=== PATIENT | female | born 1965 | race Caucasian/White ===

== ENCOUNTER 2018-03-18 17:38 | Emergency (ER) | payer MEDICAID ==
[2018-03-18 18:43] LABS: EOSINOPHILS % (AUTO) 0.6 %; HGB - HEMOGLOBIN 9.9 g/dL (12.0-16.0); LYMPHOCYTES # (AUTO) 1.2 10^3/uL (1.5-3.5); LYMPHOCYTES % (AUTO) 24.9 %; MEAN CORPUSCULAR HEMOGLOBIN 24.2 pg (27.0-31.0); MEAN CORPUSCULAR HGB CONC 31.5 g/dL (32.0-36.0); MEAN CORPUSCULAR VOLUME 76.7 fL (81.0-99.0); MEAN PLATELET VOLUME 7.2 fL (7.9-10.8); MONOCYTES # (AUTO) 0.3 10^3/uL (0.0-1.0); MONOCYTES % (AUTO) 6.2 %; NEUTROPHILS # (AUTO) 3.3 10^3/uL (1.5-6.6); NEUTROPHILS % (AUTO) 67.3 %; PLT - PLATELET COUNT 400 10^3/uL (130-450); RED CELL DISTRIBUTION WIDTH 16.5 % (12.0-15.0); WHITE BLOOD COUNT 4.9 x10^3/uL (4.8-10.8)
[2018-03-18] MEDS: diphenhydrAMINE INJ 50 MG/ML VIAL IVP STA (18:46)
[2018-03-18] MEDS: METOCLOPRAMIDE 10 MG/2 ML VIAL IVP STA (18:46)
[2018-03-18] MEDS: SODIUM CHLORIDE 0.9% 1,000 ML IV ONE (18:49)
[2018-03-18 18:55] LABS: CALCIUM 8.7 mg/dL (8.5-10.3); CREATININE 0.8 mg/dL (0.4-1.0)
[2018-03-18 19:08] LABS: HCG,QUALITATIVE BLOOD NEGATIVE
--- NOTE | 2018-03-18 19:28 | ED Physician Documentation ---
History of Present Illness - Stated complaint Stated Complaint: HEADACHE - Chief complaint Chief Complaint: General - History obtained from History obtained from: Patient - History of Present Illness Timing: Yesterday Pain level max: >10 Pain level now: >10 Quality: Throbbing, sharp Improved by: Nothing Worsened by: Light and noise Associated symptoms: Nausea and vomiting - Additonal information Additional information: 52-year-old female with history of migraine, hypertension here complaining of her usual migraine headache since yesterday. Patient stated she had been workup and is being followed by a neurologist. She tried to take her Imitrex and Dilaudid pain medication but was not helping. at the bedside stated she had to bring her here because she has been vomiting and may be getting dehy drated. Patient denies any fever, trauma, travel or recent illness. Review of Systems Ten Systems: 10 systems reviewed and negative Constitutional: denies: Fever, Myalgias Eyes: reports: Photophobia. denies: Loss of vision, Decreased vision Nose: denies: Congestion GI: reports: Nausea, Vomiting. denies: Abdominal Pain, Diarrhea Musculoskeletal: denies: Neck pain, Back pain Neurologic: reports: Headache. denies: Generalized weakness, Focal weakness, Numbness, Difficulty speaking, Near syncope, Syncope, Seizure, Confused, Altered mental status, Unresponsive, Head injury, LOC PD PAST MEDICAL HISTORY - Past Medical History Past Medical History: No Other Past Medical History: migraines - Past Surgical History Past Surgical History: Yes Ortho: Arthroscopic surgery HEENT: Tonsil/Adenoidectomy - Present Medications Home Medications: Ambulatory Orders Medication Instructions Recorded Confirmed No Known Home Medications 03/18/18 03/18/18 - Allergies Allergies/Adverse Reactions: Allergies Allergy/AdvReac Type Severity Reaction Status Date / Time divalproex sodium Allergy Unknown Verified 03/18/18 18:46 [From Depakote] Penicillins Allergy Anaphylaxis Verified 03/18/18 18:46 - Social History Does the pt smoke?: No Smoking Status: Never smoker Does the pt drink ETOH?: No Does the pt have substance abuse?: No - Immunizations Immunizations are current?: Yes PD ED PE NORMAL - Vitals Vital signs reviewed: Yes - General General: Alert and oriented X 3, No acute distress, Well developed/nourished - HEENT HEENT: Atraumatic, PERRL, EOMI, Moist mucous membranes, Pharynx benign - Neck Neck: Supple, no meningeal sign, No bony TTP, No adenopathy - Cardiac Cardiac: RRR, No murmur - Respiratory Respiratory: No respiratory distress, Clear bilaterally - Abdomen Abdomen: Normal bowel sounds, Soft, Non tender, Non distended - Derm Derm: Normal color, Warm and dry - Extremities Extremities: No deformity - Neuro Neuro: Alert and oriented X 3, city administrator 2-12 intact, No motor deficit, No sensory deficit, Normal speech - Psych Psych: Normal mood, Normal affect Results - Vitals Vitals: Vital Signs - 24 hr 03/18/18 03/18/18 03/18/18 17:47 19:27 20:25 Temperature 36 C L 36.4 C L Heart Rate 98 91 92 Respiratory 20 16 16 Rate Blood Pressure 171/71 H 178/80 H 178/74 H O2 Saturation 99 100 99 Oxygen O2 Source Room air - Labs Labs: Laboratory Tests 03/18/18 03/18/18 03/18/18 18:36 18:36 18:36 WBC 4.9 RBC 4.10 L Hgb 9.9 L Hct 31.5 L MCV 76.7 L MCH 24.2 L MCHC 31.5 L RDW 16.5 H Plt Count 400 MPV 7.2 L Neut # (Auto) 3.3 Lymph # (Auto) 1.2 L [place] # (Auto) 0.3 Eos # (Auto) 0.0 Baso # (Auto) 0.0 Absolute Nucleated RBC 0.00 Nucleated RBC % 0.1 Sodium 136 Potassium 3.3 L Chloride 101 Carbon Dioxide 26 Anion Gap 9.0 BUN 14 Creatinine 0.8 Estimated GFR (MDRD) 76 L Glucose 126 H Calcium 8.7 Serum HCG, Qual NEGATIVE PD MEDICAL DECISION MAKING - ED course Complexity details: re-evaluated patient, considered differential (Migraine headache, tension headache, dehydration, electrolyte.), d/w patient ED course: 1943 per nurse after 1 Dilaudid is requesting for more pain medication. 2100 patient seems to be sleeping but she stated she is not and her headache is still 9/10. I informed her I will give her Dilaudid 2 mg. She stated she usually gets formula tabs. I informed her she will be getting 3 mg altogether. Patient agreed. 2205 per nurse patient is calling she stated she is feeling much better after the second dose of the Dilaudid. Patient has Dilaudid p.o. tablets and will take that as prescribed by her neurologist including the Imitrex. She will follow-up with her primary doctor from [place] after she celebrates Thanksgiving with her family. Departure - Departure Disposition: 01 Home, Self Care Clinical Impression: Migraine headache Qualifiers: Migraine type: unspecified Status migrainosus presence: without status migrainosus Intractability: not intractable Qualified Code(s): G43.909 - Migraine, unspecified, not intractable, without status migrainosus Condition: Stable Instructions: ED Headache Migraine Comments: Maintain safety while taking your chronic pain medication Dilaudid. Make sure he take her Imitrex before your migraine headache gets worse. Follow-up with your primary doctor in [place] in 1 week. If worse return to the emergency room.
[2018-03-18] MEDS: HYDROmorphone 1 MG/ML CARPUJECT IVP STA (19:56)
[2018-03-18] MEDS: HYDROmorphone 2 MG/ML VIAL IVP STA (21:54)
[2018-03-18 22:09] VITALS: BP 138/89
== END 2018-03-18 22:25 | disposition home or self-care (01) ==
LOC: ED 17:38
DX: G43.909 Migraine, unspecified, not intractable, without status migrainosus (principal); I10 Essential (primary) hypertension
CPT/HCPCS: 36415; 80048; 84703; 85025; 96374; 96375; 96376; 99283; 99284; J1170; J1200; J2765